=== PATIENT | male | born 1960 ===

== ENCOUNTER 2024-05-20 10:03 | Outpatient (OUT) | payer MEDICARE, OTHER, SELFPAY ==
--- NOTE | 2024-05-20 | XR_ITS ---
The [address] [address] Patient Name: ENOCH DESHPANDE MRN: [id number] date: 1960 Sex: M Assigned Patient Location: [facility] Current Patient Location: Accession/Order Number: [id number] Exam Date: 05/20/2024 10:15 Report Date: 05/21/2024 08:04 At the request of: EDILMA THAKUR Procedure: XR foot LT min 3V PROCEDURE: XR foot LT min 3V HISTORY: LEFT FOOT PAIN ; plantar forefoot pain in region of second, fourth, and 5th metatarsals; remote history of fractures COMPARISON: None. FINDINGS: BONES:Mild degenerative changes the first metatarsophalangeal joint. Short, small fourth metatarsal. No fracture, dislocation, bone lesion. Degenerative enthesopathic spurring of the calcaneus at the Achilles tendon insertion. SOFT TISSUES:No visible soft tissue swelling. EFFUSION:None visible. OTHER: Negative. XR/XR foot LT min 3V IMPRESSION: 1. No acute or specific findings to account for patient's symptoms. 2. Short, small appearance of the fourth metatarsal likely sequela of remote trauma. Electronically authenticated by: MALACHI IBRAHIM Date: 05/21/2024 08:04
== END 2024-05-20 10:04 | disposition home or self-care (01) ==
PROVIDERS: Visit Provider Podiatrist Foot & Ankle Surgery
DX: M79.672 Pain in left foot (principal)
CPT/HCPCS: 73630